=== PATIENT | female | born 1990 | race Caucasian/White ===

== ENCOUNTER 2021-09-18 17:45 | Emergency (ER) | payer OTHER ==
[2021-09-18 17:53] VITALS: BP 114/69; PULSE 85; TEMP 97.9; BMI 29.4
[2021-09-18] MEDS ORDERED: SODIUM CHLORIDE 0.9% 500 ML INFUS.BAG IV ONE (18:53)
[2021-09-18] MEDS ORDERED: morphine CARPU-JECT 2 MG/1 ML DISP.SYRIN IVPUSH ONE (18:53)
[2021-09-18 19:09] LABS: EOS % 0.5 % (0-4.5); HEMATOCRIT 35.8 % (32.4-45.2); HEMOGLOBIN 12.2 GM/dL (10.7-15.3); LYMPH % 17.9 % (8-40); MCH 30.7 pg (25.7-33.7); MCHC 34.1 g/dl (32.0-36.0); MEAN CELL VOLUME 90.1 fl (80-96); MEAN PLT VOLUME 8.4 fl (7.5-11.1); MONO % 6.7 % (3.8-10.2); NEUT % 73.9 % (42.8-82.8); PLATELET COUNT 195 10^3/uL (134-434); RBC 3.97 M/mm3 (3.60-5.2); RDW 13.6 % (11.6-15.6)
[2021-09-18 19:29] LABS: BLOOD UREA NITROGEN 7.3 mg/dL (7-18); CALCIUM 8.7 mg/dL (8.5-10.1)
[2021-09-18 19:33] LABS: CREATININE 0.4 mg/dL (0.55-1.3)
[2021-09-18 19:34] LABS: BILIRUBIN,TOTAL 0.4 mg/dL (0.2-1); TOT PROT 6.9 g/dl (6.4-8.2)
== END 2021-09-18 21:55 | disposition home or self-care (01) ==
LOC: JER 17:45
PROC: 3E033NZ Introduction of Analgesics, Hypnotics, Sedatives into Peripheral Vein, Percutaneous Approach (ICD-10-PCS; principal; 2021-09-18)
DX: K80.50 Calculus of bile duct without cholangitis or cholecystitis without obstruction (principal)
CPT/HCPCS: 36415; 76705-TC; 80053; 83690; 85025; 99284-25